=== PATIENT | female | born 1995 | race Caucasian/White ===

== ENCOUNTER 2020-05-05 15:29 | Outpatient (REF) | payer OTHER, SELFPAY ==
[2020-05-06 11:13] LABS: SARS COV2 PCR INHOUSE POSITIVE (Negative)
== END 2020-05-05 15:30 | disposition home or self-care (01) ==
LOC: HO.LAB 15:29
PROVIDERS: Visit Provider Internal Medicine
DX: Z20.822 Contact with and (suspected) exposure to COVID-19 (principal)
CPT/HCPCS: C9803; U0003

== ENCOUNTER 2023-01-09 11:12 | Emergency (ER) | payer OTHER, SELFPAY ==
--- NOTE | ~2023-01-09 | XR_ITS ---
EXAMINATION: PORTABLE CHEST 1 VIEW CLINICAL INFORMATION: sob w/ shield. COMPARISON: No recent pertinent prior studies are available for comparison. TECHNIQUE: Portable frontal view of the chest was obtained. FINDINGS: The lungs are well expanded. No focal infiltrate, effusion, edema, or pneumothorax. Cardiac and mediastinal silhouettes are within normal limits for technique. No acute bony abnormality seen. XR/XR chest 1V IMPRESSION: No evidence of acute disease.
--- NOTE | ~2023-01-09 | NM_ITS ---
EXAMINATION: [place] LUNG IMAGE PERFUSION CLINICAL INFORMATION: Hemoptysis COMPARISON: Chest x-ray January 09, 2023 TECHNIQUE: 0.5 mCi technetium 99m MAA was given intravenously. Images obtained over the lungs in multiple projections. FINDINGS: Homogeneous perfusion of right and left lung. No perfusion defect. No evidence of pulmonary embolism. NM/[place] pul perfusion IMPRESSION: Normal perfusion study of the lungs. No evidence of pulmonary embolism.
[2023-01-09 11:34] VITALS: BP 115/79; PULSE 83; RESP 16; TEMP 36.1; O2SAT 100; BMI 39.0
--- NOTE | 2023-01-09 11:37 | ED.GENADULT ---
HPI - General Adult General Chief complaint: Upper Respiratory Symptoms Stated complaint: nose bleed and mouth bleeding Time Seen by Provider: 01/09/23 14:43 Source: patient and family Mode of arrival: ambulatory Limitations: no limitations History of Present Illness HPI narrative: 27 year-old female who is 4 months presents for evaluation of spitting up a small amount of blood-tinged sputum w/ clot this AM wasnt coughing but suddenly coughed up blood.. She denies fevers, chills, night sweats, or malaise. No wheeze, or shortness of breath. No congestion, headaches, or sore throat. She denies abdominal pain, nausea, vomiting, and diarrhea. She reports increased urinary frequency and foul-smelling urine, but denies dysuria and hematuria. No vaginal bleeding. She follows with her fruit or nut farmer regularly. No recent travel or hx of malignancy. No history of DVT/PE. non smoker Related Data Previous Rx's Medication Instructions Recorded albuterol sulfate 90 mcg/actuation 2 inh inhalation Q4-6H PRN 01/09/23 breath activated powder inhaler shortness of breath or wheezing #1 ea azithromycin 250 mg tablet See Rx Instructions PO .COMPLEX #6 01/09/23 tabs Allergies Allergy/AdvReac Type Severity Reaction Status Date / Time No Known Allergies Allergy Verified 01/09/23 11:37 Review of Systems Review of Systems: Constitutional : No Weight loss, No Fever, No Chills, No Night Sweats, No Fatigue, No Malaise ENT/Mouth : No Hearing loss, No Ear Pain, No Nasal Congestion, No Sinus Pain, No Hoarseness, No sore throat, No Rhinorrhea, No Swallowing Difficulty Eyes: No Eye Pain, No Swelling, No Redness, No Foreign Body, No Discharge, No Vision Changes Cardiovascular : No Chest Pain, No SOB, No Dyspnea on Exertion, No Orthopnea, No Edema, No Palpitations Respiratory : No Cough, +Blood tinged Sputum, No Wheezing, No Smoke Exposure, No Dyspnea Gastrointestinal : No Nausea, No Vomiting, No Diarrhea, No Constipation, No abdominal Pain, No Hematochezia, No Melena Genitourinary : no irregular bleeding, No Dysuria, + Urinary Frequency, No Hematuria, No Urinary Incontinence, No Urgency, No Flank Pain, No Urinary Flow Changes, No Hesitancy Musculoskeletal : No joint pain, No Myalgias, No Joint Swelling Skin : No Skin Lesions, No rash Neuro : No Weakness, No Numbness, No Paresthesias, No Loss of Consciousness, No Dizziness, No Headache Psych : No Anxiety/Panic, No Depression, No SI/HI/AH/VH, No Social Issues, Heme/Lymph: No Bruising, No Bleeding,No Lymphadenopathy Endocrine : No Polyuria, No Polydipsia, No Temperature Intolerance Yes all other systems are reviewed and are negative [facility] Social History Social History Smoked in Last 30 Days: No Use of substances other than those prescribed or required for medical reasons: No Advance Directives: No Advance Directives Information Provided: No Patient : Yes Physical Exam ED Vital Signs: Vital Signs - 24 hr 01/09/23 11:34 01/09/23 12:46 01/09/23 14:39 Temperature 97 F Pulse Rate 83 75 82 Respiratory Rate 16 16 16 Blood Pressure 115/79 164/95 H 98/72 Pulse Oximetry 100 98 100 Oxygen Delivery Method Room Air Room Air Room Air 01/09/23 17:00 01/09/23 19:48 Temperature Pulse Rate 89 87 Respiratory Rate 14 16 Blood Pressure 123/75 115/64 Pulse Oximetry 99 99 Oxygen Delivery Method Room Air Room Air BMI result Body Mass Index 39.0 VSS Appearance: Alert.? Oriented X3.? No acute distress.? Head: Normocephalic, atraumatic, no step-offs or deformities Eyes: Pupils equal, round and reactive to light.? ENT: Pharynx normal.??External ears normal, TMs normal bilaterally and EAC's normal. No pain with manipulation of external ears bilaterally. No mastoid tenderness. Neck: Normal inspection.? Neck supple.? CVS: Normal heart rate and rhythm.? Pulses normal.? Respiratory: No respiratory distress.? Breath sounds normal.? Abdomen: Gravid abdomen. Soft and non-tender.?Normoactive bowel sounds in all 4 quadrants. Skin: Skin warm and dry.? Normal skin color.? Normal skin turgor.? Extremities: No lower extremity edema.? No calf ttp. 5/5 strength to bilateral upper and lower extremities Back: No midline tenderness, no C-spine tenderness, full range of motion, no CVA tenderness bilaterally Neuro: Oriented X 3.? No motor deficit.? No sensory deficit. CN 2-12 intact Course Course Course Narrative: RME performed by Daina Gifford PA-C. Patient is a 27 year old assigned female at , 4 months , presenting to the emergency department with blood tinged mucous. Patient had one episode of spitting up mucous today and it was bloody. Labs and swabs ordered. Patient placed back in the waiting room pending room availability and results. Reevaluation(s) Reevaluation #1: CBC with slight leukocytosis 12.5 with neutrophil predominance and a slight microcytic anemia which patient knows about and is currently being followed for by her OBGYN. Leukocytosis could be reactive secondary to versus secondary to acute bronchitis. Chemistry unremarkable. UA without infection. COVID, RSV and influenza negative.. Time: 14:00 Reevaluation #2: Discuss this case with my attending who recommends speaking to OBGYN. Time: 15:30 Reevaluation #3: Discussed this case with OBGYN Dr. Baldemar Aguilera who recommend is follow ing the [place] Thoracic Society and the Society of Thoracic Radiology clinical practice guidelines for the evaluation of suspected PE in which suggest that chest X-ray be used as an initial evaluation, if there is no suspicion of lower extremity DVT, with progression to ventilation perfusion scan if the chest X-ray is normal and CT angiography if the chest X-ray is abnormal. . X-ray appears to be unremarkable. Therefore ordered a V/Q scan V/Q called into the department. This case was also discussed with OBGYN at [facility] Dr. Portillo who states PE should be ruled out based off history. We to is currently close to patient's and so is [facility] they are currently closed for stable ED to ED transfer is due to capacity. Time: 17:00 Additional Reevaluation(s): 182 Pending V/Q scan. If this is negative patient can be discharged home with treatment for bronchitis. Sign out to . Medical Decision Making Medical Decision Making MDM Narrative: 27-year-old female presents for evaluation of spitting up blood-tinged sputum this morning w/ clot. She denies nose bleeds and oral bleeding. She reports increased urinary frequency and foul-smelling urine. Physical exam benign Likely bloody post nasal drip secondary to dry, irritated nasal mucosa; less likely DIC, ITP, TTP, von willebrand's, pulmonary embolism Likely UTI, increased urinary frequency secondary to , unlikely pyelonephritis, nephrolithiasis, SALMERON Plan: Labs, UA 2110: No evidence of PE on review of V/Q scan. Patient discharged with presumptive bronchitis. Differential Diagnosis Differential Diagnoses: The differential diagnosis associated with the presentation includes Likely bloody post nasal drip secondary to dry, irritated nasal mucosa; less likely DIC, ITP, TTP, von willebrand's, pulmonary embolism Likely UTI, increased urinary frequency secondary to , unlikely pyelonephritis, nephrolithiasis, SALMERON Admission/Observation Consideration of admission/observation: Escalation of care including admission/observation considered unlikely Lab Data MDM Lab Attestation statement: I reviewed the patient's lab results. CBC revealed elevated white count of 12.5 with neutrophil predominance. Mild hypochromic, microcytic anemia which is being followed by her fruit or nut farmer CMP unremarkable Viral testing negative 01/09/23 12:08 01/09/23 12:08 Labs: Lab Results 01/09/23 01/09/23 01/09/23 Range/Units 12:08 15:36 18:23 WBC 12.5 H (4.8-10.8) X10*3/uL RBC 4.44 (4.20-5.50) X10*6/uL Hgb 11.5 L (12.0-16.0) g/dl Hct 34.8 L (37.0-47.0) % MCV 78.4 L (80.0-98.0) fL MCH 25.9 L (27.0-33.0) pg MCHC 33.0 (31.0-35.0) g/dl RDW 15.1 (11.0-16.0) % Plt Count 203 (160-400) X10*3/uL MPV 9.5 (9.4-12.3) fL Immature Gran % (Auto) 0.8 H (0.0-0.4) % Neut % (Auto) 75.8 H (45-73) % Lymph % (Auto) 17.3 L (20-40) % [place] % (Auto) 5.7 (2-11) % Eos % (Auto) 0.2 (0-4) % Baso % (Auto) 0.2 (0-2) % Lymph # (Auto) 2.2 (1.2-4.9) X10*3/uL [place] # (Auto) 0.7 (0.1-1.2) X10*3/uL Eos # (Auto) 0.0 (0.0-0.4) X10*3/uL Baso # (Auto) 0.0 (0.0-0.2) X10*3/uL Abs Immat Gran (auto) 0.10 H (0.00-0.03) X10*3/uL Absolute Neuts (auto) 9.5 H (2.0-8.3) x10*3/uL Absolute Nucleated RBC 0.000 (0.0-0.012) X10*3/uL Nucleated RBC % (auto) 0.0 (0.0-0.2) /100WBC PT 10.6 L (11.1-13.3) SEC INR 0.9 (0.9-1.1) D-Dimer High Sensitivty 418 NG/ML Sodium 138 (135-145) mmol/L Potassium 4.3 (3.3-5.1) mmol/L Chloride 110 H (96-108) mmol/L Carbon Dioxide 23 (22-29) mmol/L Anion Gap 9 L (12-20) BUN 9 (9-16) mg/dL Creatinine 0.67 (0.5-1.4) mg/dL Estim Creat Clear Calc 143.3 Estimated GFR > 60 Random Glucose 98 (60-115) mg/dL Calcium 9.1 (8.4-10.2) mg/dL Total Bilirubin 0.2 (0.0-1.0) mg/dL AST 14 (5-31) U/L ALT 10 (0-31) U/L Alkaline Phosphatase 44 (39-117) U/L Total Protein 7.0 (6.5-8.0) g/dL Albumin 3.4 L (3.5-5.0) g/dL Urine Color Yellow Urine Appearance Clear Urine pH 6.0 (5.0-9.0) Ur Specific [place] >= 1.030 H (1.005-1.025) Urine Protein Negative (Neg-Trace) mg/dL Urine Glucose (UA) Negative (Negative) mg/dL Urine Ketones Negative (Negative) mg/dL Urine Blood Negative (Negative) Urine Nitrite Negative (Negative) Ur Leukocyte Esterase Negative (Negative) Influenza Type A (PCR) NEGATIVE (Negative) Influenza Type B (PCR) NEGATIVE (Negative) RSV RNA Qual (PCR) NEGATIVE (Negative) SARS-CoV-2 RNA (RT-PCR) NEGATIVE (Negative) Independent Interpretation I performed an independent interpretation of an: Plain X-Ray Critical Care Time Critical Care Time Critical Care Time: Yes Total Critical Care Time: 50 Attestation: I attest to this time spent taking care of the patient, obtaining history, physical, reviewing labs, imaging, speaking to my attending, speaking to specialist. Discharge Plan Discharge Clinical Impression: Bronchitis Patient Disposition: Home, Self-Care Instructions: Acute Bronchitis (ED) Additional Instructions: Take your medications as prescribed. If you were prescribed antibiotics today, it is important that you take your medication to their entirety, do not skip any doses, do not finish them early. Follow-up with your primary care provider this week. Return to the emergency department with new or worsening symptoms. Such as fevers, chills, chest pain, shortness of breath, nausea, vomiting, dizziness, headache, vision changes, lethargy In case of emergency call 911 Prescriptions: New albuterol sulfate 90 mcg/actuation aerosol powdr breath activated 2 inh inhalation Q4-6H PRN (Reason: shortness of breath or wheezing) Qty: 1 0RF azithromycin 250 mg tablet See Rx Instructions .ROUTE .COMPLEX Qty: 6 0RF Rx Instructions: For 250 mg dose pack: take 500 mg today (day 1), then 250 mg for 4 days (days 2-5) Referrals: ED Physician,Generic [Physician] - 2 days Stand Alone Forms: Work/School Release
[2023-01-09 12:13] LABS: MANUAL DIFF FLAG NO
[2023-01-09 12:16] LABS: Basophils Percent Auto 0.2 % (0-2); Eosinophils Percent Auto 0.2 % (0-4); Hematocrit 34.8 % (37.0-47.0); Hemoglobin 11.5 g/dl (12.0-16.0); Imm Gran Pct Auto 0.8 % (0.0-0.4); Lymphocytes Absolute Auto 2.2 X10*3/uL (1.2-4.9); Lymphocytes Percent Auto 17.3 % (20-40); Mean Corpuscular Hemoglobin 25.9 pg (27.0-33.0); Mean Corpuscular Volume 78.4 fL (80.0-98.0); Mean Platelet Volume 9.5 fL (9.4-12.3); Monocytes Absolute Auto 0.7 X10*3/uL (0.1-1.2); Monocytes Percent Auto 5.7 % (2-11); Neutrophils Absolute Auto 9.5 x10*3/uL (2.0-8.3); Neutrophils Percent Auto 75.8 % (45-73); Platelet Count 203 X10*3/uL (160-400); Red Blood Count 4.44 X10*6/uL (4.20-5.50); Red Cell Distribution Width 15.1 % (11.0-16.0); White Blood Count 12.5 X10*3/uL (4.8-10.8)
[2023-01-09 12:34] LABS: Alanine Aminotransferase 10 U/L (0-31); Albumin Level 3.4 g/dL (3.5-5.0); Alkaline Phosphatase 44 U/L (39-117); Anion Gap 9 (12-20); Aspartate Amino Transferase 14 U/L (5-31); Bilirubin Total 0.2 mg/dL (0.0-1.0); Blood Urea Nitrogen 9 mg/dL (9-16); Calcium 9.1 mg/dL (8.4-10.2); Carbon Dioxide 23 mmol/L (22-29); Chloride 110 mmol/L (96-108); Creatinine Clr Calc Pharmacy 143.3; Estimated Glomerular Filt Rate > 60; Glucose Random 98 mg/dL (60-115); Potassium 4.3 mmol/L (3.3-5.1); Sodium 138 mmol/L (135-145)
[2023-01-09 12:46] VITALS: BP 164/95; PULSE 75; RESP 16; O2SAT 98
[2023-01-09 13:07] LABS: Influenza A PCR NEGATIVE (Negative); Influenza B PCR NEGATIVE (Negative); Resp Syncy Virus RNA Qual PCR NEGATIVE (Negative); SARS COV2 PCR INHOUSE NEGATIVE (Negative)
[2023-01-09 14:39] VITALS: BP 98/72; PULSE 82; RESP 16; O2SAT 100
--- NOTE | 2023-01-09 15:36 | PC.NURSE ---
urine obtained/sent to lab.
[2023-01-09 15:55] LABS: Appearance Urine Clear; Color Urine Yellow; Glucose Urine UA Negative (Negative); Leukocyte Esterase Urine Negative (Negative); Nitrite Urine Negative (Negative); Specific Gravity - Urine >= 1.030 (1.005-1.025); Urine Blood Negative (Negative); Urine Ketones Negative (Negative); Urine Protein Negative (Neg-Trace)
--- NOTE | 2023-01-09 16:38 | P.CONOB_ITS ---
[employer] - CN: HPI Data of Consult Consult date: 01/09/23 Primary Care Provider: Unknown Physician Consult Narrative Narrative: I was consulted on Ling Baig who is a 27 year old female at 16 weeks of gestation presenting with 1 episode of hemoptysis no associated coughing, sneezing, no fever or chills and no shortness of breath . No history of lower extremity symptoms suggestive of DVT. Serology for RSV, influenza a and B and COVID were negative cc:: CC: [facility] Social History Social History Smoked in Last 30 Days: No Use of substances other than those prescribed or required for medical reasons: No Advance Directives: No Advance Directives Information Provided: No Patient : Yes Meds Allergies Allergy/AdvReac Type Severity Reaction Status Date / Time No Known Allergies Allergy Verified 01/09/23 11:37 [employer] Physical Exam Vitals Vital signs: Temp Pulse Resp BP Pulse Ox O2 Del Method 97 F 82 16 98/72 100 Room Air 01/09/23 11:34 01/09/23 14:39 01/09/23 14:39 01/09/23 14:39 01/09/23 14:39 01/09/23 14:39 BMI result Body Mass Index 39.0 [employer] - Results Labs 01/09/23 12:08 01/09/23 12:08 Labs: Short CBC 01/09/23 Range/Units 12:08 WBC 12.5 H (4.8-10.8) X10*3/uL Hgb 11.5 L (12.0-16.0) g/dl Hct 34.8 L (37.0-47.0) % Plt Count 203 (160-400) X10*3/uL BMP 01/09/23 12:08 Sodium 138 Potassium 4.3 Chloride 110 H Carbon Dioxide 23 BUN 9 Creatinine 0.67 Calcium 9.1 Liver Function 01/09/23 Range/Units 12:08 Total Bilirubin 0.2 (0.0-1.0) mg/dL AST 14 (5-31) U/L ALT 10 (0-31) U/L Alkaline Phosphatase 44 (39-117) U/L Albumin 3.4 L (3.5-5.0) g/dL Urine 01/09/23 Range/Units 15:36 Urine Color Yellow Urine Appearance Clear Urine pH 6.0 (5.0-9.0) Ur Specific [place] >= 1.030 H (1.005-1.025) Urine Protein Negative (Neg-Trace) mg/dL Urine Glucose (UA) Negative (Negative) mg/dL Assessment and Plan (1) Hemoptysis: Status: Acute Recommended the following to EDWARDO Zhao in the emergency room: Check heart rate. Rule out PE since hemoptysis using the [place] Thoracic Society and the Society of Thoracic Radiology clinical practice guidelines for the evaluation of suspected PE in which suggest that chest X-ray be used as an initial evaluation, if there is no suspicion of lower extremity DVT, with progression to ventilation perfusion scan if the chest X-ray is normal and CT angiography if the chest X-ray is abnormal. This recommendation is based in part on the higher radiation dose to the woman with CT angiography. I spent a total of 20 minutes reviewing the chart, talking to the emergency room provider and documenting in the medical record.
[2023-01-09 17:00] VITALS: BP 123/75; PULSE 89; RESP 14; O2SAT 99
--- NOTE | 2023-01-09 17:25 | PC.NURSE ---
pt aware of plan of care at this time. pt awaiting V/Q scan.
--- NOTE | 2023-01-09 18:24 | PC.NURSE ---
20gIV placed in left A w/o difficulty - labs drawn and sent to lab. pt transporting w/ imaging services at this time.
[2023-01-09 18:37] LABS: INTERNATIONAL NORM RATIO 0.9 (0.9-1.1); Prothrombin Time 10.6 SEC (11.1-13.3)
[2023-01-09 18:39] LABS: D Dimer High Sensitivity 418 NG/ML
--- NOTE | 2023-01-09 19:02 | PC.NURSE ---
pt back from imaging services at this time.
[2023-01-09 19:48] VITALS: BP 115/64; PULSE 87; RESP 16; O2SAT 99
== END 2023-01-09 21:27 | disposition home or self-care (01) ==
PROVIDERS: Physician Assistant; Physician Assistant Medical; Emergency Provider Student in an Organized Health Care Education/Training Program
DX: O26.91 Pregnancy related conditions, unspecified, first trimester (principal); R06.02 Shortness of breath; Z3A.12 12 weeks gestation of pregnancy; Z79.899 Other long term (current) drug therapy; Z20.822 Contact with and (suspected) exposure to COVID-19; Z20.828 Contact with and (suspected) exposure to other viral communicable diseases
CPT/HCPCS: 0241U; 36415; 71045; 78580; 80053; 81003; 85025; 85379; 85610; 99284; A9540

== ENCOUNTER 2024-02-03 22:09 | Emergency (ER) | payer SELFPAY ==
--- NOTE | ~2024-02-03 | XR_ITS ---
CLINICAL HISTORY: cough 1 view chest x-ray Comparison: CR/SR - XR CHEST 1V - 01/09/23 16:44 EST Findings: The lungs are clear. Normal size heart. No acute fracture. IMPRESSION: 1. No acute findings. This document has been electronically signed by: Sanjeev Martinez MD, PHD on 02/03/2024 23:25:46
[2024-02-03 22:16] VITALS: BP 124/82; PULSE 88; RESP 16; TEMP 37.3; O2SAT 98; BMI 41.5
[2024-02-03 22:51] LABS: MANUAL DIFF FLAG NO
[2024-02-03 22:52] LABS: Basophils Percent Auto 0.3 % (0-2); Eosinophils Absolute Auto 0.1 X10*3/uL (0.0-0.4); Eosinophils Percent Auto 0.9 % (0-4); Hematocrit 35.6 % (37.0-47.0); Hemoglobin 11.4 g/dl (12.0-16.0); Imm Gran Abs Auto 0.03 X10*3/uL (0.00-0.03); Imm Gran Pct Auto 0.3 % (0.0-0.4); Lymphocytes Percent Auto 28.2 % (20-40); Mean Corpuscular Hemoglobin 24.3 pg (27.0-33.0); Mean Corpuscular Volume 75.9 fL (80.0-98.0); Mean Platelet Volume 9.9 fL (9.4-12.3); Monocytes Absolute Auto 0.8 X10*3/uL (0.1-1.2); Monocytes Percent Auto 7.5 % (2-11); Neutrophils Absolute Auto 6.6 x10*3/uL (2.0-8.3); Neutrophils Percent Auto 62.8 % (45-73); Platelet Count 272 X10*3/uL (160-400); Red Blood Count 4.69 X10*6/uL (4.20-5.50); Red Cell Distribution Width 14.3 % (11.0-16.0); White Blood Count 10.5 X10*3/uL (4.8-10.8)
[2024-02-03 23:05] LABS: Alanine Aminotransferase 18 U/L (0-31); Albumin Level 4.2 g/dL (3.5-5.0); Alkaline Phosphatase 65 U/L (39-117); Anion Gap 11 (12-20); Aspartate Amino Transferase 21 U/L (5-31); Bilirubin Total 0.2 mg/dL (0.0-1.0); Blood Urea Nitrogen 15 mg/dL (9-16); Calcium 9.6 mg/dL (8.4-10.2); Carbon Dioxide 24 mmol/L (22-29); Chloride 110 mmol/L (96-108); Creatinine Clr Calc Pharmacy 98.7; Estimated Glomerular Filt Rate > 60; Glucose Random 106 mg/dL (60-115); Potassium 4.3 mmol/L (3.3-5.1); Sodium 141 mmol/L (135-145); Total Protein 7.7 g/dL (6.5-8.0)
[2024-02-03 23:29] LABS: Influenza A PCR NEGATIVE (Negative); Influenza B PCR NEGATIVE (Negative); Resp Syncy Virus RNA Qual PCR NEGATIVE (Negative); SARS COV2 PCR INHOUSE NEGATIVE (Negative)
--- NOTE | 2024-02-04 00:56 | ED_ITS ---
HPI - General Adult General Chief complaint: General Medical Stated complaint: lower back pain Time Seen by Provider: 02/04/24 00:57 Source: patient and family Limitations: language barrier History of Present Illness ED Provider: Edilma Mendez PA-C HPI narrative: 28-year-old female with a history of asthma presents with cough and cold symptoms x2 days. Patient has been having a dry, repetitive cough. Denies shortness of breath, chest pain or fever. Patient states she has developed discomfort across her mid back since she has been coughing. Pain worse with movement and with coughing. Related Data Previous Rx's ?Medication ?Instructions ?Recorded albuterol sulfate 90 mcg/actuation 2 inh inhalation Q4-6H PRN 01/09/23 breath activated powder inhaler shortness of breath or wheezing #1 ea azithromycin 250 mg tablet See Rx Instructions PO .COMPLEX #6 01/09/23 tabs albuterol sulfate 90 mcg/actuation 2 puff inhalation Q4-6H PRN 02/04/24 aerosol inhaler shortness of breath or wheezing #6.7 grams ibuprofen 600 mg tablet 600 mg PO Q6H PRN pain #20 tabs 02/04/24 methocarbamol 750 mg tablet 750 mg PO BEDTIME PRN pain #5 tabs 02/04/24 Allergies Allergy/AdvReac Type Severity Reaction Status Date / Time No Known Allergies Allergy Verified 02/03/24 22:16 Review of Systems 2 Review of Systems: Yes all other systems are reviewed and are negative Constitutional: Constitutional: Denies fatigue and Denies fever(s) Cardiovascular: Cardiovascular: Denies chest pain and Denies dyspnea Respiratory: Respiratory: Reports cough, Denies dyspnea and Denies wheezing Gastrointestinal: Gastrointestinal: Denies abdominal pain Musculoskeletal: Musculoskeletal: Denies back pain Endocrine: Endocrine: Denies fatigue Allergic/Immunologic: Allergic/Immunologic: Denies wheezing [facility] Past Medical History Attestation statement: The following information was validated with the patient. Social History Social History Advance Directives: No Advance Directives Information Provided: Yes Do you have a plan to hurt others: No Plan Physical Exam ED Vital Signs: Vital Signs - 24 hr 02/03/24 22:16 Temperature 99.1 F Pulse Rate 88 Respiratory Rate 16 Blood Pressure 124/82 Pulse Oximetry 98 Oxygen Delivery Method Room Air BMI result Body Mass Index 41.5 Const Other: Alert, well appearing Orientation/consciousness: patient oriented x3 Resp Other: Nonlabored respirations, lungs clear to auscultation, active bronchospasm cough Cardio Other: Normal peripheral perfusion Skin Other: Warm dry no rash Neuro General: patient oriented x3, no focal motor deficits and CN's II-XI intact bilaterally Psych Other: Cooperative Medical Decision Making Medical Decision Making MDM Narrative: 28-year-old female with a history of asthma presents with cough and cold symptoms x2 days. Patient has been having a dry, repetitive cough. Denies shortness of breath, chest pain or fever. Patient states she has developed discomfort across her mid back since she has been coughing. Pain worse with movement and with coughing. Problem: Asthma History: Per patient I have considered the following differential diagnoses: Musculoskeletal strain, rib fracture, costochondritis, pneumonia, bronchitis, asthma exacerbation Plan: Screening labs including a viral panel and chest x-ray were obtained. The patient's discomfort is consistent with musculoskeletal strain secondary to her coughing. She does have an active bronchospasm cough, however is not wheezing. We will send with an inhaler for the bronchospasm. this is not an asthma exacerbation. We will send with a muscle relaxant and anti-inflammatory for her pain. I have independently reviewed the following tests: Labs: No leukocytosis, not anemic, no electrolyte abnormality, viral panel neck Chest x-ray:MPRESSION: 1. No acute findings. This document has been electronically signed by: Sanjeev Martinez MD, PHD on 02/03/2024 23:25:46 Lab Data 02/03/24 22:45 02/03/24 22:45 Labs: Lab Results 02/03/24 Range/Units 22:45 WBC 10.5 (4.8-10.8) X10*3/uL RBC 4.69 (4.20-5.50) X10*6/uL Hgb 11.4 L (12.0-16.0) g/dl Hct 35.6 L (37.0-47.0) % MCV 75.9 L (80.0-98.0) fL MCH 24.3 L (27.0-33.0) pg MCHC 32.0 (31.0-35.0) g/dl RDW 14.3 (11.0-16.0) % Plt Count 272 D (160-400) X10*3/uL MPV 9.9 (9.4-12.3) fL Immature Gran % (Auto) 0.3 (0.0-0.4) % Neut % (Auto) 62.8 (45-73) % Lymph % (Auto) 28.2 (20-40) % [place] % (Auto) 7.5 (2-11) % Eos % (Auto) 0.9 (0-4) % Baso % (Auto) 0.3 (0-2) % Lymph # (Auto) 3.0 (1.2-4.9) X10*3/uL [place] # (Auto) 0.8 (0.1-1.2) X10*3/uL Eos # (Auto) 0.1 (0.0-0.4) X10*3/uL Baso # (Auto) 0.0 (0.0-0.2) X10*3/uL Abs Immat Gran (auto) 0.03 (0.00-0.03) X10*3/uL Absolute Neuts (auto) 6.6 (2.0-8.3) x10*3/uL Absolute Nucleated RBC 0.000 (0.0-0.012) X10*3/uL Nucleated RBC % (auto) 0.0 (0.0-0.2) /100WBC Sodium 141 (135-145) mmol/L Potassium 4.3 (3.3-5.1) mmol/L Chloride 110 H (96-108) mmol/L Carbon Dioxide 24 (22-29) mmol/L Anion Gap 11 L (12-20) BUN 15 (9-16) mg/dL Creatinine 1.00 (0.5-1.4) mg/dL Estim Creat Clear Calc 98.7 Estimated GFR > 60 Random Glucose 106 (60-115) mg/dL Calcium 9.6 (8.4-10.2) mg/dL Total Bilirubin 0.2 (0.0-1.0) mg/dL AST 21 (5-31) U/L ALT 18 (0-31) U/L Alkaline Phosphatase 65 (39-117) U/L Total Protein 7.7 (6.5-8.0) g/dL Albumin 4.2 (3.5-5.0) g/dL Influenza Type A (PCR) NEGATIVE (Negative) Influenza Type B (PCR) NEGATIVE (Negative) RSV RNA Qual (PCR) NEGATIVE (Negative) SARS-CoV-2 RNA (RT-PCR) NEGATIVE (Negative) Discharge Plan Discharge Clinical Impression: Acute thoracic myofascial strain, Acute bronchospasm Patient Disposition: Home, Self-Care Instructions: Muscle Strain (ED), Bronchospasm (ED) Additional Instructions: You are being treated for bronchospasm type cough, which cause your back strain. See home care instructions. Use the albuterol inhaler as needed for bronchospasm, use as directed. Use the methocarbamol as needed for your discomfort, to note this medication will cause drowsiness, do not drive or operate machinery while taking the medication. You should be using the ibuprofen 600 mg taken every 6 hours with food, as an anti-inflammatory, to help your back discomfort. Follow up with your primary care provider as needed. Prescriptions: New albuterol sulfate 90 mcg/actuation HFA aerosol inhaler 2 puff inhalation Q4-6H PRN (Reason: shortness of breath or wheezing) Qty: 6.7 0RF methocarbamol 750 mg tablet 750 mg PO BEDTIME PRN (Reason: pain) Qty: 5 0RF ibuprofen 600 mg tablet 600 mg PO Q6H PRN (Reason: pain) Qty: 20 0RF No Action albuterol sulfate 90 mcg/actuation aerosol powdr breath activated 2 inh inhalation Q4-6H PRN (Reason: shortness of breath or wheezing) Qty: 1 0RF azithromycin 250 mg tablet See Rx Instructions .ROUTE .COMPLEX Qty: 6 0RF Rx Instructions: For 250 mg dose pack: take 500 mg today (day 1), then 250 mg for 4 days (days 2-5) Print Language: Croatian
[2024-02-04 01:37] VITALS: BP 127/79; PULSE 82; RESP 17; TEMP 37.2
[2024-02-04] MEDS: methocarbamoL 750 MG TABLET PO (02:10)
[2024-02-04] MEDS: Ibuprofen 600 MG TABLET PO (02:10)
[2024-02-04 02:26] VITALS: BP 127/79; PULSE 82; RESP 17; TEMP 37.2
== END 2024-02-04 02:27 | disposition home or self-care (01) ==
PROVIDERS: Emergency Provider Emergency Medicine
DX: J45.909 Unspecified asthma, uncomplicated (principal); Z03.818 Encounter for observation for suspected exposure to other biological agents ruled out; S29.012A Strain of muscle and tendon of back wall of thorax, initial encounter; X50.9XXA Other and unspecified overexertion or strenuous movements or postures, initial encounter; Y93.89 Activity, other specified; Y92.9 Unspecified place or not applicable; Y99.9 Unspecified external cause status
CPT/HCPCS: 0241U; 36415; 71045; 80053; 85025; 99283

== ENCOUNTER → 2024-02-03 22:24 | Outpatient (BNV) | payer OTHER, SELFPAY | PROVIDERS: Visit Provider General Practice | DX: R05.9 Cough, unspecified (principal) | CPT/HCPCS: 71045 ==

== ENCOUNTER 2024-09-17 22:53 | Emergency (ER) | payer OTHER, SELFPAY ==
[2024-09-17 22:58] VITALS: BP 127/77; PULSE 89; RESP 20; TEMP 36.4; O2SAT 100; BMI 41.0
[2024-09-17 23:27] LABS: Hematocrit 32.3 % (37.0-47.0); Hemoglobin 10.5 g/dl (12.0-16.0); Imm Gran Abs Auto 0.05 X10*3/uL (0.00-0.03); Imm Gran Pct Auto 0.4 % (0.0-0.4); Lymphocytes Absolute Auto 3.6 X10*3/uL (1.2-4.9); MANUAL DIFF FLAG NO; Mean Corpuscular HGB Conc 32.5 g/dl (31.0-35.0); Mean Corpuscular Hemoglobin 23.6 pg (27.0-33.0); Mean Corpuscular Volume 72.7 fL (80.0-98.0); NRBC Abs Auto 0.000 X10*3/uL (0.0-0.012); NRBC Pct Auto 0.0 /100WBC (0.0-0.2); Platelet Count 252 X10*3/uL (160-400); Red Blood Count 4.44 X10*6/uL (4.20-5.50); White Blood Count 13.9 X10*3/uL (4.8-10.8)
[2024-09-17 23:28] LABS: Appearance Urine Clear; Glucose Urine UA Negative (Negative); PH 5.5 (5.0-9.0); Specific Gravity - Urine >= 1.030 (1.005-1.025); UMIC TRIGGER UACC YES
[2024-09-17 23:30] LABS: UACC Culture Trigger YES
[2024-09-17 23:42] LABS: Alanine Aminotransferase 19 U/L (0-31); Albumin Level 4.2 g/dL (3.5-5.0); Alkaline Phosphatase 62 U/L (39-117); Anion Gap 13 (12-20); Aspartate Amino Transferase 21 U/L (5-31); Blood Urea Nitrogen 11 mg/dL (9-16); Calcium 8.7 mg/dL (8.4-10.2); Carbon Dioxide 23 mmol/L (22-29); Chloride 109 mmol/L (96-108); Creatinine Clr Calc Pharmacy 117.0; Estimated Glomerular Filt Rate > 60; Potassium 3.2 mmol/L (3.3-5.1); Sodium 142 mmol/L (135-145); Total Protein 7.3 g/dL (6.5-8.0)
[2024-09-18 00:20] VITALS: BP 118/76; PULSE 78; RESP 18; TEMP 36.7; O2SAT 99
--- NOTE | 2024-09-18 19:22 | ED_ITS ---
HPI - Abdominal Pain General Chief Complaint: Abdominal Pain Stated Complaint: 1 month -feeling crampy Time Seen by Provider: 09/17/24 23:37 Source: patient Mode of arrival: ambulatory Limitations: no limitations History of Present Illness ED Provider: HPI narrative: Patient's about 4-5 weeks LMP was 7/5 comes here as she has some discomfort in right upper abdomen no nausea no vomiting no diarrhea no vaginal discharge no urinary symptoms Related Data Previous Rx's ?Medication ?Instructions ?Recorded albuterol sulfate 90 mcg/actuation 2 inh inhalation Q4 -6H PRN 01/09/23 breath activated powder inhaler shortness of breath or wheezing #1 ea azithromycin 250 mg tablet See Rx Instructions PO .COM PLEX #6 01/09/23 tabs albuterol sulfate 90 mcg/actuation 2 puff inhalation Q 4-6H PRN 02/04/24 aerosol inhaler shortness of breath or wheez ing #6.7 grams ibuprofen 600 mg tablet 600 mg PO Q6H PRN pain #20 t abs 02/04/24 methocarbamol 750 mg tablet 750 mg PO BEDTIME PRN pain #5 tabs 02/04/24 nitrofurantoin 100 mg PO BID 7 days #14 cap s 09/18/24 monohydrate/macrocrystals 100 mg capsule (Macrobid) Allergies Allergy/AdvReac Type Severity Reaction Status Date / Time No Known Allergies Allergy Verified 09/17/24 23:01 Review of Systems Review of Systems Yes all other systems are reviewed and are negative PMFSH Social History Social History Alcohol intake: current Alcohol intake frequency: holidays/special occasions only Smoked in Last 30 Days: No Use of substances other than those prescribed or required for medical reasons: No Advance Directives: No Advance Directives Information Provided: Yes Do you have a plan to hurt others: No Plan Patient : Yes Physical Exam ED Vital Signs: Vital Signs - 24 hr 09/17/24 22:58 09/18/24 00:20 Temperature 97.6 F 98.0 F Pulse Rate 89 78 Respiratory Rate 20 18 Blood Pressure 127/77 118/76 Pulse Oximetry 100 99 Oxygen Delivery Method Room Air Room Air BMI result Body Mass Index 41.0 Appearance: Alert. Oriented X3. No acute distress. Eyes: PERRLA, No Nystagmus no pallor or icterus ENT: Pharynx normal. Oral Mucosa moist Neck: Normal inspection. Neck supple. CVS: Normal heart rate and rhythm. Pulses normal. Respiratory: No respiratory distress. Equal air entry bilateral, no wheezing/rales/rhonchi Abdomen: Soft and mild discomfort on right upper quadrant on deep palpation. Bowel sounds are present, no mass palpable, no CVA tenderness Skin: Skin warm and dry. Normal skin color. Normal skin turgor. Extremities: No lower extremity edema. No calf tenderness Neuro: Oriented X 3. No motor deficit. Medical Decision Making Medical Decision Making [facility] Narrative: Patient has mild discomfort right upper abdominal bedside ultrasound done which was negative for gallstones Nj sign was negative labs are stable except for urine showed WBCs will give Macrobid Differential Diagnosis Differential Diagnoses: The differential diagnosis associated with the presentation includes Cholelithiasis/UTI/renal colic Lab Data [facility] Lab Attestation statement: I reviewed the patient's lab results. 09/17/24 23:21 09/17/24 23:21 Labs: Lab Results 09/17/24 Range/Units 23:21 WBC 13.9 H (4.8-10.8) X10*3/uL RBC 4.44 (4.20-5.50) X10*6/uL Hgb 10.5 L (12.0-16.0) g/dl Hct 32.3 L (37.0-47.0) % MCV 72.7 L (80.0-98.0) fL MCH 23.6 L (27.0-33.0) pg MCHC 32.5 (31.0-35.0) g/dl RDW 15.5 (11.0-16.0) % Plt Count 252 (160-400) X10*3/uL MPV 9.9 (9.4-12.3) fL Immature Gran % (Auto) 0.4 (0.0-0.4) % Neut % (Auto) 67.3 (45-73) % Lymph % (Auto) 26.0 (20-40) % [place] % (Auto) 5.8 (2-11) % Eos % (Auto) 0.3 (0-4) % Baso % (Auto) 0.2 (0-2) % Lymph # (Auto) 3.6 (1.2-4.9) X10*3/uL [place] # (Auto) 0.8 (0.1-1.2) X10*3/uL Eos # (Auto) 0.0 (0.0-0.4) X10*3/uL Baso # (Auto) 0.0 (0.0-0.2) X10*3/uL Abs Immat Gran (auto) 0.05 H (0.00-0.03) X10*3/uL Absolute Neuts (auto) 9.3 H (2.0-8.3) x10*3/uL Absolute Nucleated RBC 0.000 (0.0-0.012) X10*3/uL Nucleated RBC % (auto) 0.0 (0.0-0.2) /100WBC Sodium 142 (135-145) mmol/L Potassium 3.2 L D (3.3-5.1) mmol/L Chloride 109 H (96-108) mmol/L Carbon Dioxide 23 (22-29) mmol/L Anion Gap 13 (12-20) BUN 11 (9-16) mg/dL Creatinine 0.83 (0.5-1.4) mg/dL Estim Creat Clear Calc 117.0 Estimated GFR > 60 Random Glucose 102 (60-115) mg/dL Calcium 8.7 D (8.4-10.2) mg/dL Total Bilirubin 0.2 (0.0-1.0) mg/dL Direct Bilirubin < 0.2 (0.0-0.5) mg/dL AST 21 (5-31) U/L ALT 19 (0-31) U/L Alkaline Phosphatase 62 (39-117) U/L Total Protein 7.3 (6.5-8.0) g/dL Albumin 4.2 (3.5-5.0) g/dL Beta HCG, Quant 4863 mIU/mL Urine Color Yellow Urine Appearance Clear Urine pH 5.5 (5.0-9.0) Ur Specific [place] >= 1.030 H (1.005-1.025) Urine Protein Negative (Neg-Trace) mg/dL Urine Glucose (UA) Negative (Negative) mg/dL Urine Ketones Trace (Negative) mg/dL Urine Blood Negative (Negative) Urine Nitrite Negative (Negative) Ur Leukocyte Esterase Moderate (2+) H (Negative) Urine RBC 0-2 (0-2) /HPF Urine WBC 21-50 H (0-5) /HPF Ur Squamous Epith Cells 6-10 (0-2) /HPF Urine Bacteria 2+ (None Seen) Hyaline Casts 0-2 (0-2) /LPF Medications Administered Discontinued Medications Generic Name Dose Route Start Last Admin Trade Name Freq PRN Reason Stop Dose Admin Nitrofurantoin Macrocrystals 100 mg 09/18/24 00:00 09/18/24 00:15 Nitrofurantoin Monohyd/M-Cryst 100 Mg Capsule PO 09/18/24 00:01 100 mg ONCE ONE Administration Discharge Plan Discharge Clinical Impression: UTI (urinary tract infection), Early stage of Patient Disposition: Home, Self-Care Instructions: Urinary Tract Infection in (ED), at 7 to 10 Weeks (ED) Additional Instructions: Drink plenty of fluids Take antibiotic as prescribed Follow up with your Ob G Report to the ER if worsening of the pain/vomiting/fever Prescriptions: New nitrofurantoin monohyd/m-cryst [Macrobid] 100 mg capsule 100 mg PO BID 7 Days Qty: 14 0RF Rx Instructions: must administer with a meal/food No Action albuterol sulfate 90 mcg/actuation aerosol powdr breath activated 2 inh inhalation Q4-6H PRN (Reason: shortness of breath or wheezing) Qty: 1 0RF azithromycin 250 mg tablet See Rx Instructions .ROUTE .COMPLEX Qty: 6 0RF Rx Instructions: For 250 mg dose pack: take 500 mg today (day 1), then 250 mg for 4 days (days 2-5) albuterol sulfate 90 mcg/actuation HFA aerosol inhaler 2 puff inhalation Q4-6H PRN (Reason: shortness of breath or wheezing) Qty: 6.7 0RF methocarbamol 750 mg tablet 750 mg PO BEDTIME PRN (Reason: pain) Qty: 5 0RF ibuprofen 600 mg tablet 600 mg PO Q6H PRN (Reason: pain) Qty: 20 0RF Interventions: ED Discharge Assessment Last Done: 09/18/24 00:20 Discharge Date/Time: 09/18/24 00:25 Print Language: Beninese
== END 2024-09-18 00:25 | disposition home or self-care (01) ==
PROVIDERS: Emergency Provider Internal Medicine
DX: O23.41 Unspecified infection of urinary tract in pregnancy, first trimester (principal); N39.0 Urinary tract infection, site not specified; O26.891 Other specified pregnancy related conditions, first trimester; R10.11 Right upper quadrant pain; Z3A.01 Less than 8 weeks gestation of pregnancy
CPT/HCPCS: 36415; 80048; 80076; 81001; 84702; 85025; 87086; 87147; 99283; 99284